=== PATIENT | male | born 1955 | race Caucasian/White ===

== ENCOUNTER → 2024-06-27 | Day surgery (SDC) | payer MEDICARE, MEDICAID ==
[~2024-06-27] VITALS: Ht 182.9 cm; Wt 92.5 kg
[~2024-06-27] MED LIST: ACETYLCHOLINE CHLORIDE INTRAOCULAR SOLUTION 1:100 ELECTROLYTE DILUENT IO ONE; BALANCED SALT IRRIG SOLN COMB1 500ML OP NR; CALC-36 PO; EPHEDRINE SULFATE 50MG/ML VIAL ONE; FENTANYL CITRATE/PF 50MCG/ML 2ML VIAL ONE; GEMF600T90 PO; HYALURONATE SODIUM 10MG/ML 0.55ML SYRINGE IO ONE; HYDRALAZINE 20MG/ML VIAL ONE; HYDROMORPHONE HCL/PF 2MG/ML INJ IV PRN; LACTATED RINGERS 1,000 ML IV SCH; LEVO125T8 PO; LORA10TA7 PO; MONT-39 PO; OMEP20CA14 PO; ONDANSETRON HCL 4MG/2ML INJ IV PRN; PROPOFOL 200MG/20ML VIAL IV ONE; RISP-29 PO; TRYPAN BLUE 0.5 ML DISP.SYRIN IO ONE
[2024-06-27 09:14] LABS: BASOPHILS % 0.7 % (0.0-2.0); EOSINOPHILS % 2.3 % (0.0-5.0); HEMATOCRIT. 42.3 % (42.0-52.0); HEMOGLOBIN. 14.2 g/dL (14.0-18.0); LYMPHOCYTES % 25.2 % (20.0-50.0); MEAN CORPUSCULAR HEMOGLOBIN 30.1 pg (28.0-32.0); MEAN CORPUSCULAR HGB CONC 33.6 g/dL (31.0-37.0); MEAN CORPUSCULAR VOLUME 89.4 fL (80.0-94.0); MEAN PLATELET VOLUME 8.1 fl (7.4-10.4); MONOCYTES % 9.5 % (2.0-8.0); NEUTROPHILS % 62.3 % (40.0-76.0); PLATELET 255 x1000/uL (130-400); RED BLOOD CELL COUNT 4.73 mill/uL (4.7-6.1); WHITE BLOOD COUNT 6.4 x1000/uL (4.5-11.0)
[2024-06-27 09:24] LABS: CHLORIDE 105 mEq/L (98-107); SODIUM 141 mEq/L (136-145)
[2024-06-27 09:25] LABS: CALCIUM 9.2 mg/dL (8.7-10.4); CARBON DIOXIDE 23 mEq/L (21-32)
[2024-06-27 09:30] LABS: CREATININE 1.1 mg/dL (0.6-1.3); GLUCOSE 105 mg/dL (70-105); UREA NITROGEN BLOOD 16 mg/dL (9-23)
== END | disposition home or self-care (01) ==
LOC: OR 08:34
PROVIDERS: ATTEND Ophthalmology
DX: H25.89 Other age-related cataract (principal); I45.10 Unspecified right bundle-branch block; E78.5 Hyperlipidemia, unspecified; E03.9 Hypothyroidism, unspecified; Z79.899 Other long term (current) drug therapy; Z79.890 Hormone replacement therapy
CPT/HCPCS: 66984; 80048; 85025; 36415; 93005; V2632; J3010; J3490 ×2; J0360; J2704; Q9957